=== PATIENT | female | born 1985 | race Hispanic/Latino ===

== ENCOUNTER 2020-02-10 09:15 | Outpatient (CLI) | payer OTHER ==
--- NOTE | 2020-02-10 10:17 | Ultrasound Report ---
EXAMINATION: Bilateral Complete Breast Ultrasound, 02/10/2020 INDICATION: Family history of breast cancer. COMPARISON: Bilateral mammography 01/09/20 and bilateral breast ultrasound 12/25/18. FINDINGS: Complete sonographic evaluation of all 4 quadrants and retroareolar region was performed. RIGHT: There is mild benign-appearing ductal ectasia in the subareolar region. No other abnormality i s seen in the right breast. LEFT: There is a 5.9 mm hypoechoic nodule at the 3:00 position 7 cm from the nipple. The lesion has m ildly irregular borders and has a slightly thickened wall and contains low-level internal echoes. No posterior features are seen and no internal vascularity is identified on Doppler exam. This lesion wa s not identified previously. No mammographic correlate is identified. No other abnormality is seen in the left breast.. IMPRESSION: 5.9 mm hypoechoic nodule in the left lateral breast is complex cystic or solid and is a n ew finding. Biopsy/aspiration under sonographic guidance is recommended. Follow up recommendation: Surgical consult BI-RADS Category 4: Suspicious for Malignancy. BI-RADS Category 4A-low suspicion for malignancy. Signer Name: Reginald Lewis MD Signed: 02/10/2020 10:13 AM Workstation Name: [id number]
== END 2020-02-10 09:16 | disposition home or self-care (01) ==
LOC: SPVWC 09:15
PROVIDERS: ATTEND Surgery
DX: Z12.31 Encounter for screening mammogram for malignant neoplasm of breast (principal); N63.42 Unspecified lump in left breast, subareolar; Z80.3 Family history of malignant neoplasm of breast